=== PATIENT | male | born 1980 | race Caucasian/White ===

== ENCOUNTER 2021-03-14 23:05 | Emergency (ER) | payer OTHER ==
[~2021-03-14 23:05] MED LIST: Iopamidol 370 76% 100 ML VIAL ONE
[2021-03-14] MEDS ORDERED: diphenhydrAMINE 50 MG/ML VIAL ONE (23:22)
[2021-03-14] MEDS ORDERED: Metoclopramide HCl 10 MG/2 ML VIAL ONE (23:22)
[2021-03-14] MEDS ORDERED: Ketorolac Tromethamine 30 MG/ML VIAL ONE (23:55)
[2021-03-14] MEDS ORDERED: methylPREDNISolone Sod Succ/PF 125 MG/2 ML VIAL ONE (23:55)
[2021-03-15] MEDS ORDERED: cefTRIAXone\\ROCEPHIN 1 GM VIAL ONE (00:12)
== END 2021-03-15 00:50 | disposition home or self-care (01) ==
LOC: BURERS 23:05
DX: J01.90 Acute sinusitis, unspecified (principal)
CPT/HCPCS: 70450; 70496; 70498; 96365; 96375; J0696; J1200; J1885; J2765; J2930; Q9967